=== PATIENT | female | born 1975 | race Caucasian/White ===

== ENCOUNTER 2017-03-27 22:30 | Emergency (ER) | payer OTHER ==
[2017-03-27] MEDS ORDERED: ASPIRIN 81 MG CHEW TAB ONE (22:44)
[2017-03-27] MEDS ORDERED: NITROGLYCERIN 0.4 MG TAB.SUBL SL ONE (22:44)
[2017-03-27] MEDS ORDERED: 0.9 % SODIUM CHLORIDE 1,000 ML IV ONE (22:44)
[2017-03-27] MEDS ORDERED: ASPIRIN 81 MG CHEW TAB PO ONE (22:47)
[2017-03-27] MEDS ORDERED: NITROGLYCERIN 0.4 MG TAB.SUBL SL PRN (22:47)
[2017-03-27 22:59] LABS: BASOPHILS % 0.6 (0.0-1.5); EOSINOPHILS % 1.5 % (0.0-6.8); MEAN CORPUSCULAR HEMOGLOBIN 31.6 pg (28.0-34.0); MEAN CORPUSCULAR VOLUME 93.4 fl (80.0-100.0); MONOCYTES % 1.5 % (0.0-11.0); NEUTROPHILS # 8.3 # k/uL (1.4-7.7)
[2017-03-27] MEDS ORDERED: MORPHINE SULFATE 10 MG/ML AMP IVP ONE (23:00)
[2017-03-27] MEDS ORDERED: MORPHINE SULFATE 2 MG/ML DISP.SYRIN ONE (23:02)
[2017-03-27] MEDS ORDERED: ONDANSETRON HCL/PF 4 MG/ 2ML VIAL ONE (23:04)
[2017-03-27] MEDS ORDERED: ONDANSETRON HCL/PF 4 MG/ 2ML VIAL IVP ONE (23:04)
[2017-03-27 23:10] LABS: eGFR (African) > 60; eGFR (Non-African) > 60
[2017-03-27] MEDS ORDERED: MAG HYDROX/AL HYDROX/SIMETH 30 ML, Lidocaine 2%Visc 15ml 20 MG, PHENobarb/HYOSCY/ATROPI... PO ONE ×3 (23:56)
[2017-03-28] MEDS ORDERED: Lidocaine 2%Visc 15ml 20 MG/ML UDC ONE (00:02)
[2017-03-28] MEDS ORDERED: MAGNESIUM HYDROXIDE/AL HYDROX 30 ML UDC PO ONE (00:02)
--- NOTE | 2017-03-28 01:03 | Diagnostic Imaging Report ---
[id number] [address] [place], [place]. [address] Report Submission Date: Mar 27, 2017 11:52:56 PM CDT Patient Study Name: NATALI SALGUERO Date: Mar 27, 2017 11:33:55 PM CDT Modality Type: CR Gender: F Description: CHEST : 73 Institution: [facility] Physician: [facility] Pa and lateral chest Clinical history : chest pain Technique pa and lateral upright Findings: The lung whitaker are clear. I see no hilar or mediastinal mass. There is no pleural effusion or lesion of the bony thorax. Impression: No acute pulmonary disease Electronically signed on Mar 27, 2017 11:52:56 PM CDT by: Aleks FRANK
--- NOTE | 2017-03-28 01:20 | ED Physician Documentation ---
Chest Pain - HISTORIAN Historian: patient - HPI Chief Complaint: General Adult Additional Information: Pt is a 42 yo female that presents with left sided chest pain, onset roughly 2 hours ago while watching a moving. States its located in her left lower chest and radiates to her left shoulder. States the pain came on gradually and has progressively gotten worse - stating now it is a 10/10. Pain is worse with deep inspiration. Nothing seems to relieve the pain. She did report an episode of N/ V [employer]. Denies diaphoresis. Pt does report some epigastric discomfort. Denies history of CAD or other heart issues. No relevant family history. Denies History of DVT/PE and denies leg swelling or pain. States she has never had an episode like this before. Onset: hours Timing: gradual onset Duration: constant Last known Well Date: 03/27/17 Last Known Well Time: 21:00 Context: rest Severity: moderate Chest Pain Radiation: shoulders (left) Chest Pain Signs/Symptoms: nausea, vomiting. denies: diaphoresis, dizziness, dyspnea, tachycardia Relieved By: nothing - ROS CONST: none MS/LYMPH: none. denies: calf pain, ankle swelling GI/: abdominal pain EYES/ENT: none SKIN/ENDO: none NEURO/PSYCH: none - PAST HX WA risk factors: no pertinent history DVT/PE Risk Factors: none Neuro deficit: none Lung disease: none Allergies/Adverse Reactions: Allergies Allergy/AdvReac Type Severity Reaction Status Date / Time erythromycin base Allergy Verified 03/27/17 23:02 Penicillins Allergy Verified 03/27/17 23:02 sulfamethoxazole Allergy Verified 03/27/17 23:02 [From Bactrim] trimethoprim [From Bactrim] Allergy Verified 03/27/17 23:02 Home Medications: Ambulatory Orders Medication Instructions Recorded Bupropion HCl [Wellbutrin Sr] 150 mg PO DAILY 03/27/17 - SOCIAL HX Smoking History: non-smoker Alcohol Use: occasionally (2-3 glasses of wine every other day) - FAMILY HX Family HX: none - VITAL SIGNS Vital Signs: Vital Signs Temp Pulse Resp BP Pulse Ox 74 100 03/27/17 22:47 03/27/17 22:47 - REVIEWED ASSESSMENTS Nursing Assessment Reviewed: Yes Vitals Reviewed: Yes Progress - Results/Orders Results/Orders: CXR - No acute process - Progress Progress: Further discussion with the patient reveals her pain is actually more LUQ and epigastric in nature. Pt reports pain is down to 4/10 after morphine. Pt did not get any relief from the nitro. 0030 - Pt reports complete relief of her pain after the GI cocktail. I discussed with her that I don't have a great explanation for pain but all of her lab work in non-acute. I discussed results of her lab work, EKG and CXR. She does not have any risk factors for CAD - her HEART score is 1 which puts her at low risk. I discussed follow up with her PCP in 3-5 days and s/s that would warrant immediate return - she is understanding and agreeable. - EKG/XRAY/CT EKG: NSR, no ST T wave changes Comments: Rate of 72 bpm ED Results Lab/Radiology - Orders Orders: ED Orders Category Date Time Status Continuous EKG monitoring Q30M Care 03/27/17 22:47 Active Continuous Pulse Oximetry Q30M Care 03/27/17 22:47 Active CHEST P.A.&LAT 2 VIEWS [RAD] Stat Exams 03/27/17 Ordered CBC/PLATELET/DIFF Routine Lab 03/27/17 22:52 Received CMP Routine Lab 03/27/17 22:52 Received CREATINE KINASE Routine Lab 03/27/17 22:52 Received TROPONIN I (cTnI) Stat Lab 03/27/17 22:52 Received 0.9 % Sodium Chloride [Normal Saline] 1,000 ml Med 03/27/17 22:44 Discontinued IV .STK-MED Aspirin Med 03/27/17 22:44 Discontinued 324 mg .ROUTE .STK-MED ONE Aspirin Med 03/27/17 22:47 Discontinued 324 mg PO NOW ONE Nitroglycerin [Nitroquick] Med 03/27/17 22:44 Discontinued 0.4 mg SL .STK-MED ONE Nitroglycerin [Nitroquick] Med 03/27/17 22:47 Ordered 0.4 mg SL Q5M PRN Oxygen Daily Oxygen 03/27/17 23:00 Ordered EKG WITH COMPARISON Stat Ther 03/27/17 22:47 Ordered Chest Pain Physical Exam - EXAM General Appearance: mild distress EENT: ENT inspection normal Neck: nml inspection Respiratory: no resp. distress, chest non-tender, nml breath sounds CVS: reg. rate & rhythm, no murmur Abdomen: soft, normal bowel sounds, tenderness (in epigastric and LUQ - mild in nature, no guarding or rebound) Skin: warm/dry Extremities: non-tender Neuro: oriented X3 Discharge Clincal Impression: Epigastric abdominal pain Referrals: Primary Doctor,[place] [Primary Care Provider] - 2 Days Additional Instructions: May begin to take OTC Zantac as directed. Follow up with your PCP in 3-5 days. Return to the ED should your symptoms worsen or not improve. Home Medications: Ambulatory Orders Bupropion HCl [Wellbutrin Sr] 150 mg PO DAILY 03/27/17 Condition: Good Disposition: 01 HOME, SELF-CARE Decision to Admit: NO Decision Time: 00:39
[2017-03-28 06:00] VITALS: BP 110/71
== END 2017-03-28 00:40 | disposition home or self-care (01) ==
LOC: ED 22:30 → MERGE 22:30 → ED 03-28 00:40
DX: R10.13 Epigastric pain (principal)
CPT/HCPCS: 71020; 80053; 82150; 82550; 84484; 85025; A9270; J2270; J2405; J7030; 96374; 96375; 99284; S1016

== ENCOUNTER 2019-08-05 11:25 | Emergency (ER) | payer OTHER ==
--- NOTE | 2019-08-05 11:31 | ED Physician Documentation ---
General Adult - HISTORIAN Historian: patient - HPI Stated Complaint: weakness, headache, dizzy Chief Complaint: General Adult Onset: days ago (4) Timing: still present, better Severity: moderate Further Comments: yes (she reports a headache x 4 days (she has migraines although this is not as bad as a migraine) . No injury. She has had some times where she is feeling confused and overly emotional. She also reports a few days on and off where a few fingers feel numb - No loss of control of bowel or bladder. No change in strength or facial droop) - ROS CONST: no problems - PAST HX Past History: other (anxiety ) Surgeries/Procedures: hysterectomy Immunizations: UTD Allergies/Adverse Reactions: Allergies Allergy/AdvReac Type Severity Reaction Status Date / Time erythromycin base Allergy Verified 08/05/19 11:32 Penicillins Allergy Verified 08/05/19 11:32 sulfamethoxazole Allergy Verified 08/05/19 11:32 [From Bactrim] trimethoprim [From Bactrim] Allergy Verified 08/05/19 11:32 Home Medications: Ambulatory Orders Medication Instructions Recorded Bupropion HCl [Wellbutrin Sr] 150 mg PO DAILY 03/27/17 Gabapentin 300 mg PO BID 08/05/19 Venlafaxine HCl [Venlafaxine HCl 75 mg PO DAILY 08/05/19 ER] - SOCIAL HX Smoking History: non-smoker Alcohol Use: none Drug Use: none - FAMILY HX Family History: No - VITAL SIGNS Vital Signs: Vital Signs Temp Pulse Resp BP Pulse Ox 110/71 03/28/17 05:48 - REVIEWED ASSESSMENTS Nursing Assessment Reviewed: Yes Vitals Reviewed: Yes Progress - Progress Progress: 1300: discussed results and plan - she reports she is feeling better DG General Adult Physical Exam - PHYSICAL EXAM GENERAL APPEARANCE: mild distress (emotional) EENT: eye inspection normal, ENT inspection normal, no signs of dehydration, TILA NECK: normal inspection RESPIRATORY: no resp distress, chest non-tender, breath sounds normal CVS: reg rate & rhythm, heart sounds normal ABDOMEN: soft, normal bowel sounds, no distension BACK: normal inspection, no CVA tenderness SKIN: warm/dry EXTREMITIES: non-tender, normal range of motion, no evidence of injury, no edema NEURO: oriented X3 (she knows month not sure of exact date. ), CN's nml as tested, motor nml, sensation nml, mood/affect nml, cognition normal Discharge Clincal Impression: Dizziness Headache Qualifiers: Headache type: unspecified Headache chronicity pattern: acute headache Intractability: not intractable Qualified Code(s): R51 - Headache Referrals: Primary Doctor,No [Primary Care Provider] - 2 Days Comments: 1. Follow up with PCP in 2 days 2. Rest and increase fluids 3. Return to ER for any increasing concerns Condition: Stable Disposition: 01 HOME, SELF-CARE Decision to Admit: NO Date of Decison to Admit: 08/05/19 Decision Time: 13:04
[2019-08-05 11:40] LABS: BASOPHILS % 0.7 % (0.0-1.5); NEUTROPHILS # 2.7 # k/uL (1.4-7.7)
[2019-08-05] MEDS: 0.9 % SODIUM CHLORIDE 1,000 ML IV ONE (11:50)
[2019-08-05 11:53] LABS: eGFR (Non-African) > 60
--- NOTE | 2019-08-05 12:12 | Diagnostic Imaging Report ---
PATIENT MR#: [id number] PATIENT PATIENT NAME: NATALI SALGUERO DATE OF : 1975 REFERRING PHYSICIAN: Dana Huerta EXAM DATE: 08/05/2019 ACCESSION NUMBER: [id number] EXAM DESCRIPTION: CT BRAIN W/O CONTRAST CT Brain noncontrast Date of exam: August 05, 2019 Indication:CT HEAD W/O, MEMORY PROBLEMS/ HEADACHES X4 DAYS, LEFT SIDED WEAKNESS/NUMBNESS, WITH OCCASI ONAL RT HAND 11:56:58 AM User : Kina Headley CT HEAD W/O, MEMORY PROBLEMS/ HEADACHES X4 DAYS, LEFT SIDED WEAKNES S/NUMBNESS, WITH OCCASIONAL RT HAND NUMBNESS (DICOM Hx) (DICOM Hx) Comparison: None Findings: The ventricles, gyri, and sulci are appropriate. There is no midline shift, mass, mass effect, or ac creek intracranial hemorrhage. No cortical infarct is identified. In the right posterior subinsular region there is a 5 .3 mm hypodensity which could represent prominent perivascular space or old lacunar infarct. The paranasal sinuses and mastoid air cells are well aerated. The calvarium is intact. Impression: No acute intracranial pathology Right sided perivascular prominent space versus old lacunar infarct. Read by: Dr. Carlin Dunbar Transcribed by: Transcribed Date: Electronically signed by: Dr. Carlin Dunbar Date signed: 08/05/2019 12:11:34 PM
--- NOTE | 2019-08-05 12:15 | Diagnostic Imaging Report ---
PATIENT MR#: [id number] PATIENT PATIENT NAME: NATALI SALGUERO DATE OF : 1975 REFERRING PHYSICIAN: Dana Huerta EXAM DATE: 08/05/2019 ACCESSION NUMBER: [id number] EXAM DESCRIPTION: CT C-SPINE W/O CONTRAS CT CERVICAL SPINE WITHOUT CONTRAST CT CORONAL/SAGITTAL RECONSTRUCTED IMAGES. INDICATION: CT C-SPINE, NUMBNESS/WEAKNESS IN HAND/ARM, LEFT SIDE AND OCCASIONAL RT SIDED. X4 DAYS (Hx ) / ITS.REASON NUMBNESS/WEAKNESS IN HAND/ARM, LEFT SIDE AND OCCASIONAL RT SIDED. X4 DAYS (DICOM Hx) (DICOM Hx) TECHNIQUE: 2 mm axial images through the cervical spine noncontrast followed by coronal and sagittal reconstructed images. FINDINGS: The ring of C1 is intact. There are degenerative changes present at C5, C6 and C7 with intervertebral disc space narrowing at C5-6 and C6-7. There is no evidence of acute fracture, subluxation, or dislocation. The paravertebral soft tissue is unremarkable. No central canal stenosis is present. The sagittal and coronal reconstructed images confirm the above findings. The lateral masses and the odontoid appear intact. IMPRESSION: 1. No acute osseous abnormality. 2. Degenerative changes. Read by: Dr. Carlin Dunbar Transcribed by: Transcribed Date: Electronically signed by: Dr. Carlin Dunbar Date signed: 08/05/2019 12:14:34 PM
[2019-08-05] MEDS: LORazepam 2 MG/ML VIAL IV ONE (12:34)
[2019-08-05 13:44] VITALS: BP 118/80
[2019-08-06 09:17] LABS: APPEARANCE,URINE CLEAR (CLEAR); COLOR,URINE YELLOW (YELLOW); OCCULT BLOOD,URINE NEGATIVE (NEGATIVE); PH URINE 5.5 (5.0 - 8.0); UROBILINOGEN URINE 0.2 Eu (0.2-1.0)
== END 2019-08-05 13:25 | disposition home or self-care (01) ==
LOC: ED 11:25
DX: R42 Dizziness and giddiness (principal)
CPT/HCPCS: 70450; 72125; 80053; 81002; 85025; 85610; 93005; J2060; J7030; S1016